=== PATIENT | female | born 1985 | race African-American/Black ===

== ENCOUNTER 2025-03-17 17:34 | Emergency (ER) | payer SELFPAY ==
[2025-03-17] MEDS ORDERED: Sodium Chloride 0.9% 10 ML Syringe FLUSH PRN (18:06)
[2025-03-17 18:17] LABS: BASOPHILS ABSOLUTE AUTO 0.1 K/mm3 (0.0-0.2); BASOPHILS PERCENT AUTO 0.6 % (0.0-1.0); EOSINOPHILS ABSOLUTE AUTO 0.2 K/mm3 (0.0-0.4); EOSINOPHILS PERCENT AUTO 2.0 % (0.0-6.0); IMMATURE GRAN ABSOLUTE AUTO 0.03 K/mm3 (0.00-0.05); IMMATURE GRAN PERCENT AUTO 0.3 % (0.0-0.4); LYMPHOCYTES ABSOLUTE AUTO 3.1 K/mm3 (1.0-4.8); LYMPHOCYTES PERCENT AUTO 33.2 % (24.0-44.0); MEAN PLATELET VOLUME 9.6 fl (9.4-12.3); MONOCYTES ABSOLUTE AUTO 0.5 K/mm3 (0.0-0.8); MONOCYTES PERCENT AUTO 5.4 % (0.0-8.0); NEUTROPHILS ABSOLUTE AUTO 5.5 K/mm3 (1.8-7.7); NEUTROPHILS PERCENT AUTO 58.5 % (41.0-71.0); NRBC ABSOLUTE 0.00 (0.00-0.02); NRBC PERCENT 0.0 % (0.0-0.2); PLATELET COUNT,PLT 392 K/mm3 (150-400); RED BLOOD CELL COUNT 4.92 M/mm3 (4.10-5.30); WHITE BLOOD CELL COUNT,WBC 9.47 K/mm3 (3.9-11.3)
[2025-03-17] MEDS ORDERED: Iopamidol 612 MG/ML 30 ML SDV IVPUSH ONE (18:35)
[2025-03-17 18:38] LABS: A/G RATIO 0.7 (1-2); ALANINE AMINOTRANSFERASE,ALT 25 U/L (14-59); ASPARTATE AMNIOTRANSFERASE,AST 20 U/L (15-37); BILIRUBIN TOTAL 0.3 mg/dL (0.2-1.0); BLOOD UREA NITROGEN,BUN 13 mg/dL (7-18); CARBON DIOXIDE,CO2 27 mEq/L (21-32); CHLORIDE,CL 102 mEq/L (98-107); CREATININE 0.7 mg/dL (0.55-1.02); EST CRCL DRUG DOSING (CG) 103.01 mL/min; ESTIMATED GFR 114 mL/min (>60); GLUCOSE RANDOM 93 mg/dL (70-99); POTASSIUM,K 3.7 mEq/L (3.5-5.1); PROTEIN TOTAL,TP 8.3 g/dl (6.4-8.2); SODIUM,NA 137 mEq/L (136-145)
[2025-03-17] MEDS: Iopamidol 612 MG/ML 100 ML Bottle IVPUSH ONE (18:42)
[2025-03-17] MEDS: Sodium Chloride 0.9% 10 ML Syringe FLUSH ONE (18:42)
[2025-03-17 18:57] LABS: TROPONIN I HIGH SENSITIVITY < 4 pg/mL (<=51)
[2025-03-17 19:03] LABS: APPEARANCE,URINE CLEAR (Clear); GLUCOSE,URINE NEGATIVE (Negative); OCCULT BLOOD,URINE NEGATIVE (Negative)
[2025-03-17] MEDS: Alum Hydrox/Mag Hydrox/Simeth 30 ML, Lidocaine 2% 15 ML PO ONE (19:56)
== END 2025-03-17 20:05 | disposition home or self-care (01) ==
LOC: JD.ED 17:34
DX: K40.20 Bilateral inguinal hernia, without obstruction or gangrene, not specified as recurrent (principal); K43.9 Ventral hernia without obstruction or gangrene; D73.89 Other diseases of spleen; E88.89 Other specified metabolic disorders; Z90.710 Acquired absence of both cervix and uterus
CPT/HCPCS: 36415; 74177; 80053; 81003; 83690; 84484; 85025; 93005; 99285; A9270; Q9967